=== PATIENT | male | born 1990 | race Caucasian/White ===

== ENCOUNTER 2016-10-23 23:02 | Emergency (ER) | payer OTHER ==
[~2016-10-23 23:02] MED LIST: ADV250INH INH; ALBU17IN INH; ALBU17IN2 INH; ALPR0.25 PO; DUONSOL NEB; FLOVENT INH; GUAISYP4 PO; INSU70DS SC; INSUH10VL INJ; INSUH10VL IV; INSUH10VL SC; INSULANT SC; KLOR20TA PO; LANTUS INSULIN SC; LISI2.5T PO; MAGN200T PO; MICR10CA PO; NAPR500T2 PO; NOVO70VL SC; NOVOLOG; NOVOLOG INSULIN SC; OMEP20CA3 PO; PRED20TA PO; PRIL20CA PO; SING10TA32 PO; SING5CHW PO; SINGULAIR PO; TYLE325T5 PO; XANA0.25 PO; ZITHTAB PO
[2016-10-23] MEDS ORDERED: AZITHROMYCIN 250 MG TAB As Ordered ONE (23:33)
--- NOTE | 2016-10-23 23:47 | EDDOCDS ---
Physician Documentation [facility] Name: Scott Hernandez Age: 26 yrs Sex: Male : 1990 Arrival Date: 10/23/2016 Time: 23:02 Bed 8 Private MD: Court Persaud K. Disposition: 10/23/16 23:25 Discharged to Home/Self Care. Impression: Acute pharyngitis, Acute frontal sinusitis. - Condition is Stable. - Discharge Instructions: Pharyngitis, Salt Water Gargle. - Prescriptions for Claritin- D 12 Hour 5-120 mg Oral Tablet Sustained Release 12 hr - take 1 tablet by ORAL route every 12 hours As needed; 30 tablet. Zithromax Z- Aba 250 mg Oral Tablet - take 1 tablet by ORAL route as directed for 5 days Day 1- take two tablets once. Day 2, 3, 4 , 5 take one tablet once daily.; 6 tablet. - Medication Reconciliation, Local Pharmacy Hours form. - Follow up: Court Persaud; When: 1 week; Reason: Recheck today's complaints, Continuance of care. - Problem is an ongoing problem. - Symptoms are unchanged. Historical: - Allergies: PENICILLINS (Hives); - Home Meds: 1. albuterol sulfate 90 mcg/actuation Inhl aepb 2 puffs every 4-6 hours for Acute Asthma Attack 2. Humalog 100 unit/mL Sub-Q soln four times a day Slding Scale for Type 1 Diabetes Mellitus 3. trujeio 4. nicotoine patch - PMHx: Asthma; Diabetes - IDDM: controlled; Scoliosis; - PSHx: none; - Social history: Smoking status: Patient states former smoker of tobacco. No barriers to communication noted, The patient speaks fluent South Sudanese, Speaks appropriately for age. - Family history: Not pertinent. - : The pt / caregiver states he / she is not on anticoagulants. Home medication list is obtained from the patient. - Exposure Risk Screening:: None identified. Vital Signs: 10/23 23:04 BP 142 / 83; Pulse 110; Resp 18 S; Temp 98.3(T); Pulse Ox 98% on R/A; Weight 67.59 kg / gr2 149.01 lbs (R); Height 5 ft. 8 in. (172.72 cm) (R); Pain 3/10; 23:04 Body Mass Index 22.66 (67.59 kg, 172.72 cm) gr2 MDM: 23:22 azithromycin 500 mg PO once ordered. kyle 23:42 Financial registration complete. pm4 Administered Medications: 23:36 Drug: azithromycin 500 mg [azithromycin 250 mg tablet (2 tabs)] Route: PO; ko2 Signatures: Rambo Paz RN RN cz Mo Jiménez, MIS SPECIALIST MIS SPECIALIST Latanya Bell RN RN ko2 Xavier Whitten, Reg Reg pm4 MTDD
--- NOTE | 2016-10-23 23:47 | EDDOCDS ---
Nurse's Notes [facility] Name: Scott Hernandez Age: 26 yrs Sex: Male : 1990 Arrival Date: 10/23/2016 Time: 23:02 Bed 8 Private MD: Court Persaud K. Diagnosis: Acute pharyngitis;Acute frontal sinusitis Presentation: 10/23 23:06 Presenting complaint: Patient states: for past couple days URI symptoms laryngitis. cz Adult Sepsis Screening: The patient does not have new or worsening altered mentation. Patient's respiratory rate is less than 22. Systolic blood pressure is greater than 100. Patient has a qSOFA score of 0- Negative Sepsis Screen. Suicide/Homicide risk assessment- the patient denies having any suicidal and/or homicidal ideations and does not present with any other emotional, behavioral or mental health complaints. Status: Patient is not a director of tax services or dependent. Transition of care: patient was not received from another setting of care. 23:06 Acuity: JOSE ANTONIO Level 5 cz 23:06 Method Of Arrival: Walkin/Carried/Asstd cz Triage Assessment: 23:09 General: Appears in no apparent distress. HIV screening NA for this visit Offered cz previously. Historical: - Allergies: PENICILLINS (Hives); - Home Meds: 1. albuterol sulfate 90 mcg/actuation Inhl aepb 2 puffs every 4-6 hours for Acute Asthma Attack 2. Humalog 100 unit/mL Sub-Q soln four times a day Slding Scale for Type 1 Diabetes Mellitus 3. trujeio 4. nicotoine patch - PMHx: Asthma; Diabetes - IDDM: controlled; Scoliosis; - PSHx: none; - Social history: Smoking status: Patient states former smoker of tobacco. No barriers to communication noted, The patient speaks fluent Greek, Speaks appropriately for age. - Family history: Not pertinent. - : The pt / caregiver states he / she is not on anticoagulants. Home medication list is obtained from the patient. - Exposure Risk Screening:: None identified. Screenin:39 Screening information is obtained from the patient. Fall risk: No risks identified. ko2 Assistance ADL's: requires no assistance with activities of daily living. Abuse/DV Screen: The patient / caregiver reports he/she is: not in a situation that causes fear, pain or injury. Nutritional screening: No deficits noted. Advance Directives: Currently, there is no health care proxy. There is no active DNR order. There is no living will. There is no Power of Master Mechanic. home support is adequate. Assessment: 23:15 General: Appears in no apparent distress, Behavior is appropriate for age, cooperative. ko2 Neurological: Level of Consciousness is awake, alert, Oriented to person, place, time. Respiratory: Airway is patent Respiratory effort is even, unlabored. Derm: Skin is normal. Vital Signs: 23:04 BP 142 / 83; Pulse 110; Resp 18 S; Temp 98.3(T); Pulse Ox 98% on R/A; Weight 67.59 kg gr2 (R); Height 5 ft. 8 in. (172.72 cm) (R); Pain 3/10; 23:04 Body Mass Index 22.66 (67.59 kg, 172.72 cm) gr2 Vitals: 23:04 Log In Time: October 23, 2016 at 23:04. gr2 ED Course: 23:03 Patient visited by Miguel Dumont. gr2 23:03 Patient moved to Waiting gr2 23:04 Court Persaud is Private Physician. gr2 23:05 Patient visited by Miguel Dumont. gr2 23:05 Patient moved to Pre RCE gr2 23:07 Triage Initiated cz 23:13 Mo Jiménez FNP is PHCP. ke 23:13 Latanya Corona,RN is Primary Nurse. ke 23:13 Patient visited by Mo Jiménez FNP. ke 23:13 Patient visited by Mo Jiménez FNP. ke 23:13 Patient moved to 8 ke 23:25 [address] Persaud is Referral Physician. ke 23:43 The patient / caregiver is instructed regarding the plan of care and ED course. ko2 23:44 No IV's were initiated during this patient's visit. No procedures done that require ko2 assistance. 23:46 Patient visited by Cynthia Ballard PCA. cln Administered Medications: 23:36 Drug: azithromycin 500 mg [azithromycin 250 mg tablet (2 tabs)] Route: PO; ko2 Order Results: There are currently no results for this order. Outcome: 23:25 Discharge ordered by Provider. ke 23:44 Discharge Assessment: Patient awake, alert and oriented x 3. No cognitive and/or ko2 functional deficits noted. Patient verbalized understanding of disposition instructions. patient administered narcotics - no. The following High Risk Discharge criteria are identified: None. Discharged to home ambulatory. Condition: stable. Discharge instructions given to patient, Instructed on discharge instructions, follow up and referral plans. medication usage, Demonstrated understanding of instructions, medications, Pt was receptive of discharge instructions/ teaching. Prescriptions given X 2. No special radiology studies were completed. Property sent home with patient. 23:45 Patient left the ED. ko2 Signatures: Rambo Paz, RN RN cz oM Jiménez, TALENT ENGINEER TALENT ENGINEER Miguel Huerta2 Latanya Corona RN RN ko2 Cyntiha Ballard, JARED ASSISTANT PORTFOLIO MANAGER cln MTDD
--- NOTE | 2016-10-26 00:47 | EDDOCDS ---
Physician Documentation [facility] Name: Scott Hernandez Age: 26 yrs Sex: Male : 1990 Arrival Date: 10/23/2016 Time: 23:02 Bed 8 Private MD: Court Persaud K. Disposition: 10/23/16 23:25 Discharged to Home/Self Care. Impression: Acute pharyngitis, Acute frontal sinusitis. - Condition is Stable. - Discharge Instructions: Pharyngitis, Salt Water Gargle. - Prescriptions for Claritin- D 12 Hour 5-120 mg Oral Tablet Sustained Release 12 hr - take 1 tablet by ORAL route every 12 hours As needed; 30 tablet. Zithromax Z- Aba 250 mg Oral Tablet - take 1 tablet by ORAL route as directed for 5 days Day 1- take two tablets once. Day 2, 3, 4 , 5 take one tablet once daily.; 6 tablet. - Medication Reconciliation, Local Pharmacy Hours form. - Follow up: Court Persaud; When: 1 week; Reason: Recheck today's complaints, Continuance of care. - Problem is an ongoing problem. - Symptoms are unchanged. Historical: - Allergies: PENICILLINS (Hives); - Home Meds: 1. albuterol sulfate 90 mcg/actuation Inhl aepb 2 puffs every 4-6 hours for Acute Asthma Attack 2. Humalog 100 unit/mL Sub-Q soln four times a day Slding Scale for Type 1 Diabetes Mellitus 3. trujeio 4. nicotoine patch - PMHx: Asthma; Diabetes - IDDM: controlled; Scoliosis; - PSHx: none; - Social history: Smoking status: Patient states former smoker of tobacco. No barriers to communication noted, The patient speaks fluent Panamanian, Speaks appropriately for age. - Family history: Not pertinent. - : The pt / caregiver states he / she is not on anticoagulants. Home medication list is obtained from the patient. - Exposure Risk Screening:: None identified. Vital Signs: 10/23 23:04 BP 142 / 83; Pulse 110; Resp 18 S; Temp 98.3(T); Pulse Ox 98% on R/A; Weight 67.59 kg / gr2 149.01 lbs (R); Height 5 ft. 8 in. (172.72 cm) (R); Pain 3/10; 23:04 Body Mass Index 22.66 (67.59 kg, 172.72 cm) gr2 MDM: 23:22 azithromycin 500 mg PO once ordered. kyle 23:42 Financial registration complete. pm4 10/24 00:21 [facility] Payment Agreement was scanned into [employer] and attached to record. pm4 11:48 T-Sheet-- Draft Copy was scanned into [employer] and attached to record. gb Administered Medications: 10/23 23:36 Drug: azithromycin 500 mg [azithromycin 250 mg tablet (2 tabs)] Route: PO; ko2 Signatures: Rambo Paz, RN RN cz Rocio Goodman, Reg Reg gb Mo Jiménez, PUMP RUNNER PUMP RUNNER Latanya Bell RN RN ko2 Xavier Whitten, Reg Reg pm4 The chart was reviewed and I authenticate all verbal orders and agree with the evaluation and treatment provided.Attachments: 10/24 00:21 [facility] Payment Agreement pm4 11:48 T-Sheet-- Draft Copy gb Chart Complete MTDD
--- NOTE | 2016-10-26 00:47 | EDDOCDS ---
Physician Documentation [facility] Name: Scott Hernandez Age: 26 yrs Sex: Male : 1990 Arrival Date: 10/23/2016 Time: 23:02 Bed 8 Private MD: Court Persaud K. Disposition: 10/23/16 23:25 Discharged to Home/Self Care. Impression: Acute pharyngitis, Acute frontal sinusitis. - Condition is Stable. - Discharge Instructions: Pharyngitis, Salt Water Gargle. - Prescriptions for Claritin- D 12 Hour 5-120 mg Oral Tablet Sustained Release 12 hr - take 1 tablet by ORAL route every 12 hours As needed; 30 tablet. Zithromax Z- Aba 250 mg Oral Tablet - take 1 tablet by ORAL route as directed for 5 days Day 1- take two tablets once. Day 2, 3, 4 , 5 take one tablet once daily.; 6 tablet. - Medication Reconciliation, Local Pharmacy Hours form. - Follow up: Court Persaud; When: 1 week; Reason: Recheck today's complaints, Continuance of care. - Problem is an ongoing problem. - Symptoms are unchanged. Historical: - Allergies: PENICILLINS (Hives); - Home Meds: 1. albuterol sulfate 90 mcg/actuation Inhl aepb 2 puffs every 4-6 hours for Acute Asthma Attack 2. Humalog 100 unit/mL Sub-Q soln four times a day Slding Scale for Type 1 Diabetes Mellitus 3. trujeio 4. nicotoine patch - PMHx: Asthma; Diabetes - IDDM: controlled; Scoliosis; - PSHx: none; - Social history: Smoking status: Patient states former smoker of tobacco. No barriers to communication noted, The patient speaks fluent Salvadorean, Speaks appropriately for age. - Family history: Not pertinent. - : The pt / caregiver states he / she is not on anticoagulants. Home medication list is obtained from the patient. - Exposure Risk Screening:: None identified. Vital Signs: 10/23 23:04 BP 142 / 83; Pulse 110; Resp 18 S; Temp 98.3(T); Pulse Ox 98% on R/A; Weight 67.59 kg / gr2 149.01 lbs (R); Height 5 ft. 8 in. (172.72 cm) (R); Pain 3/10; 23:04 Body Mass Index 22.66 (67.59 kg, 172.72 cm) gr2 MDM: 23:22 azithromycin 500 mg PO once ordered. kyle 23:42 Financial registration complete. pm4 10/24 00:21 [facility] Payment Agreement was scanned into [employer] and attached to record. pm4 11:48 T-Sheet-- Draft Copy was scanned into [employer] and attached to record. gb Administered Medications: 10/23 23:36 Drug: azithromycin 500 mg [azithromycin 250 mg tablet (2 tabs)] Route: PO; ko2 Signatures: Rambo Paz, RN RN cz Rocio Goodman, Reg Reg gb Mo Jiménez, PHYSICAL INSTRUCTOR PHYSICAL INSTRUCTOR Latanya Bell RN RN ko2 Xavier Whitten, Reg Reg pm4 The chart was reviewed and I authenticate all verbal orders and agree with the evaluation and treatment provided.Attachments: 10/24 00:21 [facility] Payment Agreement pm4 11:48 T-Sheet-- Draft Copy gb Chart Complete MTDD
--- NOTE | 2016-10-26 00:47 | EDDOCDS ---
Nurse's Notes [facility] Name: Scott Hernandez Age: 26 yrs Sex: Male : 1990 Arrival Date: 10/23/2016 Time: 23:02 Bed 8 Private MD: Court Persaud K. Diagnosis: Acute pharyngitis;Acute frontal sinusitis Presentation: 10/23 23:06 Presenting complaint: Patient states: for past couple days URI symptoms laryngitis. cz Adult Sepsis Screening: The patient does not have new or worsening altered mentation. Patient's respiratory rate is less than 22. Systolic blood pressure is greater than 100. Patient has a qSOFA score of 0- Negative Sepsis Screen. Suicide/Homicide risk assessment- the patient denies having any suicidal and/or homicidal ideations and does not present with any other emotional, behavioral or mental health complaints. Status: Patient is not a neuropsychology service director or dependent. Transition of care: patient was not received from another setting of care. 23:06 Acuity: JOSE ANTONIO Level 5 cz 23:06 Method Of Arrival: Walkin/Carried/Asstd cz Triage Assessment: 23:09 General: Appears in no apparent distress. HIV screening NA for this visit Offered cz previously. Historical: - Allergies: PENICILLINS (Hives); - Home Meds: 1. albuterol sulfate 90 mcg/actuation Inhl aepb 2 puffs every 4-6 hours for Acute Asthma Attack 2. Humalog 100 unit/mL Sub-Q soln four times a day Slding Scale for Type 1 Diabetes Mellitus 3. trujeio 4. nicotoine patch - PMHx: Asthma; Diabetes - IDDM: controlled; Scoliosis; - PSHx: none; - Social history: Smoking status: Patient states former smoker of tobacco. No barriers to communication noted, The patient speaks fluent Bulgarian, Speaks appropriately for age. - Family history: Not pertinent. - : The pt / caregiver states he / she is not on anticoagulants. Home medication list is obtained from the patient. - Exposure Risk Screening:: None identified. Screenin:39 Screening information is obtained from the patient. Fall risk: No risks identified. ko2 Assistance ADL's: requires no assistance with activities of daily living. Abuse/DV Screen: The patient / caregiver reports he/she is: not in a situation that causes fear, pain or injury. Nutritional screening: No deficits noted. Advance Directives: Currently, there is no health care proxy. There is no active DNR order. There is no living will. There is no Power of [place]. home support is adequate. Assessment: 23:15 General: Appears in no apparent distress, Behavior is appropriate for age, cooperative. ko2 Neurological: Level of Consciousness is awake, alert, Oriented to person, place, time. Respiratory: Airway is patent Respiratory effort is even, unlabored. Derm: Skin is normal. Vital Signs: 23:04 BP 142 / 83; Pulse 110; Resp 18 S; Temp 98.3(T); Pulse Ox 98% on R/A; Weight 67.59 kg gr2 (R); Height 5 ft. 8 in. (172.72 cm) (R); Pain 3/10; 23:04 Body Mass Index 22.66 (67.59 kg, 172.72 cm) gr2 Vitals: 23:04 Log In Time: October 23, 2016 at 23:04. gr2 ED Course: 23:03 Patient visited by Miguel Dumont. gr2 23:03 Patient moved to Waiting gr2 23:04 Court Persaud is Private Physician. gr2 23:05 Patient visited by Miguel Dumont. gr2 23:05 Patient moved to Pre RCE gr2 23:07 Triage Initiated cz 23:13 Mo Jiménez FNP is PHCP. ke 23:13 Latanya Corona,RN is Primary Nurse. ke 23:13 Patient visited by Mo Jiménez FNP. ke 23:13 Patient visited by Mo Jiménez FNP. ke 23:13 Patient moved to 8 ke 23:25 [address] Persaud is Referral Physician. ke 23:43 The patient / caregiver is instructed regarding the plan of care and ED course. ko2 23:44 No IV's were initiated during this patient's visit. No procedures done that require ko2 assistance. 23:46 Patient visited by Cynthia Ballard PCA. cln 10/24 00:21 [facility] Payment Agreement was scanned into [employer] and attached to record. pm4 11:48 T-Sheet-- Draft Copy was scanned into [employer] and attached to record. gb Administered Medications: 10/23 23:36 Drug: azithromycin 500 mg [azithromycin 250 mg tablet (2 tabs)] Route: PO; ko2 Order Results: There are currently no results for this order. Outcome: 23:25 Discharge ordered by Provider. kyle 23:44 Discharge Assessment: Patient awake, alert and oriented x 3. No cognitive and/or ko2 functional deficits noted. Patient verbalized understanding of disposition instructions. patient administered narcotics - no. The following High Risk Discharge criteria are identified: None. Discharged to home ambulatory. Condition: stable. Discharge instructions given to patient, Instructed on discharge instructions, follow up and referral plans. medication usage, Demonstrated understanding of instructions, medications, Pt was receptive of discharge instructions/ teaching. Prescriptions given X 2. No special radiology studies were completed. Property sent home with patient. 23:45 Patient left the ED. ko2 Signatures: Rambo Paz, RN RN Rocio Alberts, Reg Reg gb Mo Jiménez, HEAD PASTRY CHEF HEAD PASTRY CHEF Miguel Huerta gr2 Latanya Corona RN RN ko2 Cynthia Ballard, PERSONAL FINANCIAL COUNSELOR PERSONAL FINANCIAL COUNSELOR cln Xavier Whitten, Reg Reg pm4 Chart Complete MTDFahad
== END 2016-10-23 23:45 | disposition home or self-care (01) ==
LOC: M ED 23:02
DX: J02.9 Acute pharyngitis, unspecified (principal); J01.90 Acute sinusitis, unspecified; J45.909 Unspecified asthma, uncomplicated; E10.9 Type 1 diabetes mellitus without complications; M41.9 Scoliosis, unspecified; Z88.0 Allergy status to penicillin; Z79.4 Long term (current) use of insulin; Z87.891 Personal history of nicotine dependence

== ENCOUNTER 2017-01-28 13:22 | Emergency (ER) | payer OTHER ==
[2017-01-28] MEDS ORDERED: TOUJ1.2I SC (13:34)
--- NOTE | 2017-01-28 13:50 | REP ---
Head CT without contrast: History: Trauma. Comparison study: No comparison study. CT findings: Bone window settings demonstrate an intact bony calvarium. There is no evidence of skull fracture or incidental bony calvarial lesion. The visualized paranasal sinuses appear clear. No intraorbital abnormality is seen. On soft tissue window setting images; the lateral, third, and fourth ventricles are normal in size and position. Rollins-white differentiation pattern is normal above and below the tentorium. There are is no evidence of intracranial hemorrhage. No mass, edema, infarction, or midline shift is seen. No extra-axial fluid collection is appreciated. Impression: Negative noncontrast head CT. Signed by Ivan Quiñonez MD 01/28/2017 01:41 P
[2017-01-28] MEDS ORDERED: KETOROLAC 30 MG/ML VIAL (J1885) IV ONE (14:00)
[2017-01-28 14:40] VITALS: BP 129/82
[2017-03-03] MEDS ORDERED: INSULANT SC (13:20)
[2017-03-03] MEDS ORDERED: DICY20TA11 PO (13:20)
[2017-03-03] MEDS ORDERED: INSUHUMDS SC (13:20)
[2017-03-03] MEDS ORDERED: IBUP800T23 PO (13:20)
== END 2017-01-28 14:59 | disposition home or self-care (01) ==
LOC: EDBD 13:22 → M ED 13:46
DX: S09.8XXA Other specified injuries of head, initial encounter (principal); W22.8XXA Striking against or struck by other objects, initial encounter; Y92.59 Other trade areas as the place of occurrence of the external cause; Y93.89 Activity, other specified; Y99.0 Civilian activity done for income or pay; Z88.0 Allergy status to penicillin; Z79.4 Long term (current) use of insulin
CPT/HCPCS: 70450; 96374; 99282; J1885

== ENCOUNTER → 2017-02-18 | Outpatient (CLI) | payer OTHER ==
[~2017-02-18] MED LIST changes: +TOUJ1.2I SC
[2017-02-18 17:02] LABS: FREE T4 0.97 NG/DL (0.76-1.46)
== END ==
LOC: M LAB 15:34
PROVIDERS: ATTEND Internal Medicine Gastroenterology
DX: R19.7 Diarrhea, unspecified (principal)

== ENCOUNTER → 2017-03-03 | Outpatient (CLI) | payer OTHER ==
[~2017-03-03] MED LIST changes: +DICY20TA11 PO; +E-Z-PAQUE 96% w/w SUSP 176GM BTL As Ordered ONE; +IBUP800T23 PO; +INSUHUMDS SC
--- NOTE | 2017-03-03 17:14 | REP ---
Small bowel follow-through The procedure was performed under the direct supervision of Dr. Quiñonez. The images were reviewed with Dr. Quiñonez. The disintegrator operator film shows no organomegaly or pathological masses. The intestinal gas pattern is nonspecific. Liquid barium was administered and the barium column was followed through the small bowel to the level of the terminal ileum. Small bowel transit time is approximately 80 minutes . During fluoroscopy gentle palpation shows all loops are freely movable and pliable. There are no fixed or angulated loops. The small bowel mucosal pattern is normal in course and caliber. There is no transition to suggest a partial small bowel obstruction. Spot filming of the terminal ileum shows it to be unremarkable. Impression: Small bowel follow-through examination within normal limits. 1 minute and 15 seconds of fluoro time was utilized for this procedure. Reviewed by REGGIE Luna 03/03/2017 04:04 PSigned by Ivan Quiñonez MD 03/03/2017 05:05 P
== END ==
LOC: M RAD 08:05
PROVIDERS: ATTEND Internal Medicine Gastroenterology
DX: K58.0 Irritable bowel syndrome with diarrhea (principal)

== ENCOUNTER → 2017-03-10 | Outpatient (CLI) | payer OTHER ==
[~2017-03-10] VITALS: Ht 170.2 cm; Wt 64.9 kg
[~2017-03-10] MED LIST changes: -E-Z-PAQUE 96% w/w SUSP 176GM BTL As Ordered ONE; +LIDOCAINE 2% INJ 100 MG/5 ML SDV (FOR ANES.) As Ordered ONE; +NS 1,000 ML IV ONE; +PROPOFOL 200 MG/20 ML VIAL As Ordered ONE
--- NOTE | 2017-03-10 13:30 | ROOR ---
Patient Name: Scott Hernandez Procedure Date: 03/10/2017 1:02 PM Date of : 1990 Age: 26 Room: [facility] Gender: Male Note Status: Finalized Procedure: Colonoscopy Indications: Irritable bowel syndrome with diarrhea Providers: Markus POZO MD Referring MD: Darrin PEARCE MD Requesting Provider: Medicines: Monitored Anesthesia Care Complications: No immediate complications. Procedure: Pre-Anesthesia Assessment: - The heart rate, respiratory rate, oxygen saturations, blood pressure, adequacy of pulmonary ventilation, and response to care were monitored throughout the procedure. The Colonoscope was introduced through the anus and advanced to 5 cm into the ileum. The colonoscopy was performed without difficulty. The patient tolerated the procedure well. The quality of the bowel preparation was good. Findings: The perianal and digital rectal examinations were normal. (Exam: Complete, Prep: Good or Excellent.) The terminal ileum appeared normal. The entire examined colon appeared normal on direct and retroflexion views. Impression: - The examined portion of the ileum was normal. - The entire examined colon is normal on direct and retroflexion views. - No specimens collected. - (Irritable Bowel Syndrome/IBS suspected.) Recommendation: - Continue present medications. - Use fiber, for example Citrucel, Fibercon, Konsyl or Metamucil. Markus Pozo MD Markus POZO MD 03/10/2017 1:30:16 PM This report has been signed electronically. Number of Addenda: 0 Note Initiated On: 03/10/2017 1:02 PM Estimated Blood Loss: Estimated blood loss: none.
[2017-03-10 13:55] VITALS: BP 139/86
== END | disposition home or self-care (01) ==
LOC: M OPP 12:08
PROVIDERS: ATTEND Internal Medicine Gastroenterology
DX: K58.0 Irritable bowel syndrome with diarrhea (principal); E10.9 Type 1 diabetes mellitus without complications; R51 Headache; J45.909 Unspecified asthma, uncomplicated; F17.210 Nicotine dependence, cigarettes, uncomplicated; Z88.0 Allergy status to penicillin; Z79.899 Other long term (current) drug therapy; Z80.1 Family history of malignant neoplasm of trachea, bronchus and lung; Z80.42 Family history of malignant neoplasm of prostate

== ENCOUNTER 2017-03-27 13:11 | Emergency (ER) | payer OTHER ==
[~2017-03-27] VITALS: Ht 172.7 cm; Wt 66.3 kg
[~2017-03-27 13:11] MED LIST changes: -LIDOCAINE 2% INJ 100 MG/5 ML SDV (FOR ANES.) As Ordered ONE; -NS 1,000 ML IV ONE; -PROPOFOL 200 MG/20 ML VIAL As Ordered ONE
[2017-03-27] MEDS ORDERED: FLUORESCEIN OPHTH 1 MG STRIP OD ONE (14:00)
[2017-03-27 14:37] VITALS: BP 104/65
[2017-03-27] MEDS ORDERED: prednisoLONE ACET 1% OPHTH SUSP 5ML OD SCH (16:00)
== END 2017-03-27 14:38 | disposition home or self-care (01) ==
LOC: M ED 13:53
DX: H20.9 Unspecified iridocyclitis (principal); E11.9 Type 2 diabetes mellitus without complications; F17.200 Nicotine dependence, unspecified, uncomplicated

== ENCOUNTER → 2017-07-23 | Outpatient (REF) | payer OTHER ==
[~2017-07-23] MED LIST changes: +IBUP1TAB7 PO; -IBUP800T23 PO; -NAPR500T2 PO; +NAPR500T3 PO
[2017-07-23 12:55] LABS: ANION GAP 4 MEQ/L (8-16); BLOOD UREA NITROGEN 15 MG/DL (7-18); CALCIUM LEVEL 8.9 MG/DL (8.5-10.1); CARBON DIOXIDE LEVEL 34 MEQ/L (21-32); CHLORIDE LEVEL 100 MEQ/L (98-107); CHOLESTEROL LEVEL 145 MG/DL (<200); CREATININE FOR GFR 0.71 MG/DL (0.70-1.30); GLOMERULAR FILTRATION RATE > 60.0 (>60); GLUCOSE, FASTING 186 MG/DL (70-105); POTASSIUM SERUM 4.2 MEQ/L (3.5-5.1); SODIUM LEVEL 138 MEQ/L (136-145); TRIGLYCERIDES LEVEL 67 MG/DL (<150)
== END ==
LOC: M LABDRAW1 10:41
PROVIDERS: ATTEND Nurse Practitioner Family
DX: E10.65 Type 1 diabetes mellitus with hyperglycemia (principal)

== ENCOUNTER → 2018-09-17 | Outpatient (REF) | payer OTHER ==
[2018-09-17 19:48] LABS: MALB URINE SIEMENS 28.7 MG/L; MAU/CREAT RATIO 50.3 MCG/MG (0.0-30.0)
== END ==
LOC: M LAB REF 10:37
DX: E10.9 Type 1 diabetes mellitus without complications (principal)
CPT/HCPCS: 82043

== ENCOUNTER 2018-12-09 14:48 | Inpatient (IN) | payer OTHER ==
[~2018-12-09] VITALS: Ht 172.7 cm; Wt 72.3 kg
[~2018-12-09 14:48] MED LIST changes: +NAPR-885 PO; -NAPR500T3 PO
[2018-12-09] MEDS ORDERED: TOUJ1.2I SC (15:10)
[2018-12-09] MEDS ORDERED: NS 1,000 ML IV ONE (15:45)
[2018-12-09 15:46] LABS: BASO % 0.3 % (0.0-1.0); EOS # 0.5 10^3/uL (0.0-0.50); EOS % 4.4 % (0.0-3.0); HEMATOCRIT 47.7 % (42.0-52.0); HEMOGLOBIN 16.2 g/dl (13.5-17.5); LYMPH # 1.7 10^3/uL (1.5-6.5); LYMPH % 13.9 % (24.0-44.0); MEAN CORPUSCULAR HEMOGLOBIN 29.4 pg (27.0-33.0); MEAN CORPUSCULAR VOLUME 86.6 fl (80.0-96.0); MONO # 1.1 10^3/uL (0.0-0.8); MONO % 9.3 % (0.0-5.0); NEUTROPHILS # 8.6 10^3/uL (1.8-7.7); NEUTROPHILS % 71.5 % (36.0-66.0); PLATELET COUNT, AUTOMATED 259 10^3/uL (150-450); RED BLOOD COUNT 5.51 10^6/uL (4.30-6.10)
[2018-12-09 15:49] LABS: VENOUS BASE EXCESS -13.9 (-2.0-2.0); VENOUS HCO3 12.5 MEQ/L (23.0-27.0); VENOUS O2 SATURATION 87.2 % (60.0-80.0); VENOUS PARTIAL PRESSURE CO2 31.7 mmHg (38.0-50.0); VENOUS PARTIAL PRESSURE O2 56.2 mmHg (30.0-50.0); VENOUS PH 7.215 UNITS (7.330-7.430); VENOUS TOTAL CO2 13.5 MEQ/L (24.0-28.0)
[2018-12-09 16:12] LABS: ALBUMIN 4.1 GM/DL (3.2-5.2); ALT/SGPT 27 U/L (12-78); BILIRUBIN,DIRECT 0.3 MG/DL (0.0-0.2); BILIRUBIN,TOTAL 1.1 MG/DL (0.2-1.0); BLOOD UREA NITROGEN 25 MG/DL (7-18); CALCIUM LEVEL 8.9 MG/DL (8.5-10.1); CARBON DIOXIDE LEVEL 15 MEQ/L (21-32); CHLORIDE LEVEL 96 MEQ/L (98-107); CREATININE FOR GFR 1.15 MG/DL (0.70-1.30); ETHYL ALCOHOL (ETHANOL) < 0.003 % (0.000-0.010); GLOMERULAR FILTRATION RATE > 60.0 (>60); GLUCOSE, FASTING 444 MG/DL (70-100); LIPASE 186 U/L (73-393); POTASSIUM SERUM 4.6 MEQ/L (3.5-5.1); SODIUM LEVEL 133 MEQ/L (136-145); TOTAL PROTEIN 6.9 GM/DL (6.4-8.2)
[2018-12-09 16:14] LABS: HEMOGLOBIN A1c 11.6 %
[2018-12-09] MEDS ORDERED: INSULIN HUMAN REGULAR 100 UNITS in NS 99 ML IV SCH ×3 (16:20→19:49)
[2018-12-09] MEDS ORDERED: INSULIN IV RATE CHANGE DOCUMENTATION ML/HR XX SCH (16:30)
[2018-12-09] MEDS ORDERED: NICO4GUM31 PO (16:54)
[2018-12-09] MEDS ORDERED: VENTAER INH (16:54)
[2018-12-09] MEDS ORDERED: ADME100I SC (16:54)
[2018-12-09] MEDS ORDERED: ONDANSETRON 4MG/2ML VIAL (J2405) IV ONE (17:00)
[2018-12-09 17:54] LABS: VENOUS BASE EXCESS -14.8 (-2.0-2.0); VENOUS HCO3 11.9 MEQ/L (23.0-27.0); VENOUS O2 SATURATION 93.9 % (60.0-80.0); VENOUS PARTIAL PRESSURE CO2 31.3 mmHg (38.0-50.0); VENOUS PARTIAL PRESSURE O2 77.2 mmHg (30.0-50.0); VENOUS PH 7.198 UNITS (7.330-7.430); VENOUS STANDARD HCO3 13.5 MEQ/L; VENOUS TOTAL CO2 12.9 MEQ/L (24.0-28.0)
[2018-12-09 18:06] LABS: AMPHETAMINES LEVEL URINE NEGATIVE (NEGATIVE); BARBITURATES URINE NEGATIVE (NEGATIVE); BENZODIAZEPINES URINE NEGATIVE (NEGATIVE); CANNABINOIDS URINE NEGATIVE (NEGATIVE); COCAINE METABOLITE URINE NEGATIVE (NEGATIVE); METHADONE URINE NEGATIVE (NEGATIVE); OPIATES URINE NEGATIVE (NEGATIVE); PHENCYCLIDINE URINE NEGATIVE (NEGATIVE)
[2018-12-09] MEDS ORDERED: NS 1,000 ML IV SCH (18:22)
[2018-12-09] MEDS ORDERED: ALBUTEROL 90 MCG/ACT 8GM HFA INHALER INH PRN (18:30)
--- NOTE | 2018-12-09 18:51 | HPE ---
DATE OF ADMISSION: 12/09/2018 This is a 28-year-old male with past medical history of type 1 diabetes, asthma, anxiety disorder who presents to the emergency room with nausea and vomiting that has been going on since this morning. Patient came in and had blood sugar over 400. Labs came back as anion gap acidosis, so he had acute diabetic ketoacidosis (DKA) and was started on insulin drip. Patient was explained that he does not have a Glucometer so he has been judging how much insulin he gives himself by how he feels and has a history of noncompliance. His A1c is 11. He will be admitted for further management. At this time he has mild nausea, but no abdominal pain. No chest pain or shortness of breath. PAST MEDICAL HISTORY: Type 1 diabetes. Asthma. Anxiety disorder. Gastroesophageal reflux disease (GERD). Scoliosis. Back pain. PAST SURGICAL HISTORY: None. ALLERGIES: PENICILLIN. FAMILY HISTORY: Noncontributory. SOCIAL HISTORY: Patient smokes less than 1/2 pack a day for years and denies alcohol or illicit drugs. MEDICATIONS HE TAKES AT HOME: Are as follow: - albuterol 2 puffs inhaled four times a day as needed - dicyclomine 20 mg orally every 6 hours as needed - ibuprofen 800 mg orally two times a day - Toujeo SoloStar 40 units subcutaneous twice a day REVIEW OF SYSTEMS: Negative all 10 major systems except what is mentioned in HPI. PHYSICAL EXAMINATION: VITAL SIGNS: Blood pressure 114/63, heart rate is 112, regular. Respiratory rate is 17. Temperature 97.6. Oxygen saturation is 97% on room air. Head: Atraumatic. Normocephalic. Neck: Supple. No jugular venous distention (JVD). Lungs: Clear to auscultation. S1, S2 audible. No murmurs appreciated. Abdomen: Soft, positive bowel sounds. No pedal edema. Skin: Intact. Neurological examination: Patient awake, alert and oriented times three. LABS: Sodium 133, potassium 4.6, chloride 96, CO2 15, BUN 25, creatinine 1.1.5. Glucose 444. Lipase 186, albumin 4.1. A1c is 11.6. Urine toxicology screen is negative. Urinalysis is negative for urinary tract infection (UTI). Blood gas shows his VBG pH of 7.215. IMPRESSION: DKA. PLAN: Patient is to be admitted to ICU. Will start the patient on insulin drip until his anion gap closes and will attempt to get him a Glucometer so he will be able to better control his fingersticks with his current insulin regimen. Will continue following his care in the ICU.
[2018-12-09 19:18] LABS: BLOOD UREA NITROGEN 24 MG/DL (7-18); CALCIUM LEVEL 8.4 MG/DL (8.5-10.1); CARBON DIOXIDE LEVEL 16 MEQ/L (21-32); CHLORIDE LEVEL 104 MEQ/L (98-107); CREATININE FOR GFR 1.13 MG/DL (0.70-1.30); GLOMERULAR FILTRATION RATE > 60.0 (>60); GLUCOSE, FASTING 316 MG/DL (70-100); POTASSIUM SERUM 3.8 MEQ/L (3.5-5.1); SODIUM LEVEL 137 MEQ/L (136-145)
[2018-12-09 20:00] VITALS: BP 104/56
[2018-12-09] MEDS: INSULIN HUMAN REGULAR 100 UNITS in NS 99 ML IV SCH (20:00)
[2018-12-09] MEDS ORDERED: ACETAMINOPHEN TAB 650MG DOSE (2X325MG) PO PRN (20:15)
[2018-12-09 20:38] LABS: BLOOD UREA NITROGEN 25 MG/DL (7-18); CALCIUM LEVEL 8.4 MG/DL (8.5-10.1); CARBON DIOXIDE LEVEL 21 MEQ/L (21-32); CHLORIDE LEVEL 103 MEQ/L (98-107); CREATININE FOR GFR 1.22 MG/DL (0.70-1.30); GLOMERULAR FILTRATION RATE > 60.0 (>60); GLUCOSE, FASTING 221 MG/DL (70-100); POTASSIUM SERUM 3.9 MEQ/L (3.5-5.1); SODIUM LEVEL 138 MEQ/L (136-145)
[2018-12-09] MEDS ORDERED: NICOTINE POLACRILEX 2 MG GUM PO PRN (20:45)
[2018-12-09] MEDS: D5W 1,000 ML IV SCH (21:00)
[2018-12-09] MEDS: INSULIN IV RATE CHANGE DOCUMENTATION ML/HR XX SCH (21:17)
[2018-12-09 22:57] LABS: BLOOD UREA NITROGEN 21 MG/DL (7-18); CALCIUM LEVEL 8.2 MG/DL (8.5-10.1); CARBON DIOXIDE LEVEL 19 MEQ/L (21-32); CHLORIDE LEVEL 107 MEQ/L (98-107); CREATININE FOR GFR 0.99 MG/DL (0.70-1.30); GLOMERULAR FILTRATION RATE > 60.0 (>60); GLUCOSE, FASTING 153 MG/DL (70-100); MAGNESIUM LEVEL 1.9 MG/DL (1.8-2.4); POTASSIUM SERUM 3.9 MEQ/L (3.5-5.1); SODIUM LEVEL 140 MEQ/L (136-145)
[2018-12-09] MEDS ORDERED: ONDANSETRON 4MG/2ML VIAL (J2405) IV PRN (23:30)
[2018-12-10] VITALS: BP 95/49
[2018-12-10 00:59] LABS: BLOOD UREA NITROGEN 19 MG/DL (7-18); CARBON DIOXIDE LEVEL 22 MEQ/L (21-32); CHLORIDE LEVEL 105 MEQ/L (98-107); CREATININE FOR GFR 0.94 MG/DL (0.70-1.30); GLOMERULAR FILTRATION RATE > 60.0 (>60); GLUCOSE, FASTING 177 MG/DL (70-100); POTASSIUM SERUM 3.8 MEQ/L (3.5-5.1); SODIUM LEVEL 138 MEQ/L (136-145)
[2018-12-10] MEDS ORDERED: GLUCAGON FOR INJ 1 MG VIAL (J1610) SC PRN (01:45)
[2018-12-10] MEDS ORDERED: DEXTROSE 50% 50 ML SYRINGE IV PRN (01:45)
[2018-12-10] MEDS ORDERED: GLUCOSE 4 GM CHEW TABLET PO PRN (01:45)
[2018-12-10 02:20] LABS: ABG BASE EXCESS -7.1 (-2.0-2.0); ABG HCO3 16.4 MEQ/L (22.0-26.0); ABG O2 SATURATION 98.7 % (95.0-99.0); ABG PARTIAL PRESSURE CO2 28.2 mmHg (35.0-45.0); ABG PARTIAL PRESSURE O2 130.7 mmHg (75.0-100.0); ABG STANDARD HCO3 18.8 MEQ/L (22.0-26.0); ABG TOTAL CO2 17.2 MEQ/L (22.0-29.0); ABG pH (ARTERIAL) 7.382 UNITS (7.350-7.450)
[2018-12-10 02:31] LABS: BLOOD UREA NITROGEN 19 MG/DL (7-18); CARBON DIOXIDE LEVEL 18 MEQ/L (21-32); CHLORIDE LEVEL 105 MEQ/L (98-107); CREATININE FOR GFR 1.05 MG/DL (0.70-1.30); GLOMERULAR FILTRATION RATE > 60.0 (>60); GLUCOSE, FASTING 215 MG/DL (70-100); POTASSIUM SERUM 3.7 MEQ/L (3.5-5.1); SODIUM LEVEL 136 MEQ/L (136-145)
[2018-12-10] MEDS: INSULIN IV RATE CHANGE DOCUMENTATION ML/HR XX SCH ×2 (02:38→05:05)
[2018-12-10 04:00] VITALS: BP 108/56
[2018-12-10 04:23] LABS: BASO % 0.2 % (0.0-1.0); EOS # 0.4 10^3/uL (0.0-0.50); EOS % 2.8 % (0.0-3.0); HEMATOCRIT 41.1 % (42.0-52.0); HEMOGLOBIN 14.3 g/dl (13.5-17.5); LYMPH # 2.3 10^3/uL (1.5-6.5); LYMPH % 16.9 % (24.0-44.0); MEAN CORPUSCULAR HEMOGLOBIN 29.7 pg (27.0-33.0); MEAN CORPUSCULAR HGB CONC 34.8 g/dl (32.0-36.5); MEAN CORPUSCULAR VOLUME 85.4 fl (80.0-96.0); MONO # 1.4 10^3/uL (0.0-0.8); MONO % 10.2 % (0.0-5.0); NEUTROPHILS # 9.6 10^3/uL (1.8-7.7); NEUTROPHILS % 69.4 % (36.0-66.0); PLATELET COUNT, AUTOMATED 209 10^3/uL (150-450); RED BLOOD COUNT 4.81 10^6/uL (4.30-6.10); WHITE BLOOD COUNT 13.8 10^3/uL (4.0-10.0)
[2018-12-10 04:35] LABS: BLOOD UREA NITROGEN 17 MG/DL (7-18); CALCIUM LEVEL 7.7 MG/DL (8.5-10.1); CARBON DIOXIDE LEVEL 23 MEQ/L (21-32); CHLORIDE LEVEL 104 MEQ/L (98-107); CREATININE FOR GFR 1.01 MG/DL (0.70-1.30); GLOMERULAR FILTRATION RATE > 60.0 (>60); GLUCOSE, FASTING 194 MG/DL (70-100); POTASSIUM SERUM 3.4 MEQ/L (3.5-5.1); SODIUM LEVEL 137 MEQ/L (136-145)
[2018-12-10] MEDS: D5W 1,000 ML IV SCH (04:38)
[2018-12-10] MEDS: INSULIN HUMAN REGULAR 100 UNITS in NS 99 ML IV SCH (05:00)
[2018-12-10] MEDS ORDERED: POTASSIUM CHLORIDE 10 MEQ SR TABLET PO ONE (05:15)
[2018-12-10 05:21] LABS: MAGNESIUM LEVEL 1.9 MG/DL (1.8-2.4)
[2018-12-10] MEDS ORDERED: LEVEMIR (INSULIN DETEMIR) 1 UNITS/0.01ML SC SCH ×3 (06:00→21:00)
[2018-12-10 06:47] LABS: BLOOD UREA NITROGEN 15 MG/DL (7-18); CARBON DIOXIDE LEVEL 21 MEQ/L (21-32); CHLORIDE LEVEL 104 MEQ/L (98-107); CREATININE FOR GFR 0.92 MG/DL (0.70-1.30); GLOMERULAR FILTRATION RATE > 60.0 (>60); GLUCOSE, FASTING 201 MG/DL (70-100); POTASSIUM SERUM 3.4 MEQ/L (3.5-5.1); SODIUM LEVEL 138 MEQ/L (136-145)
[2018-12-10 07:17] VITALS: BP 113/58
[2018-12-10] MEDS ORDERED: HumaLOG INSULIN (NovoLOG) PER UNIT SC SCH ×3 (07:30→21:00)
[2018-12-10] MEDS: KCL 20MEQ in NS 1000ML 1,000 ML IV SCH ×3 (08:15→20:09)
[2018-12-10] MEDS: HEPARIN SOD (PORCINE) 5000 UNITS/ML VIAL SQ SCH ×2 (08:15→21:00)
[2018-12-10 10:37] LABS: HEPATITIS C VIRUS ABY INDEX < 0.0 INDEX (<0.8); HIV 1&2 SCREEN CENTAUR NEGATIVE (NEGATIVE)
[2018-12-10 12:03] LABS: BLOOD UREA NITROGEN 14 MG/DL (7-18); CALCIUM LEVEL 7.9 MG/DL (8.5-10.1); CARBON DIOXIDE LEVEL 24 MEQ/L (21-32); CHLORIDE LEVEL 101 MEQ/L (98-107); CREATININE FOR GFR 1.04 MG/DL (0.70-1.30); GLOMERULAR FILTRATION RATE > 60.0 (>60); GLUCOSE, FASTING 280 MG/DL (70-100); MAGNESIUM LEVEL 1.8 MG/DL (1.8-2.4); POTASSIUM SERUM 4.1 MEQ/L (3.5-5.1); SODIUM LEVEL 135 MEQ/L (136-145)
[2018-12-10 12:14] VITALS: BP 122/73
[2018-12-10 14:35] VITALS: BP 137/77
[2018-12-10 15:39] LABS: BLOOD UREA NITROGEN 16 MG/DL (7-18); CALCIUM LEVEL 7.4 MG/DL (8.5-10.1); CARBON DIOXIDE LEVEL 26 MEQ/L (21-32); CHLORIDE LEVEL 106 MEQ/L (98-107); CREATININE FOR GFR 1.05 MG/DL (0.70-1.30); GLOMERULAR FILTRATION RATE > 60.0 (>60); GLUCOSE, FASTING 246 MG/DL (70-100); MAGNESIUM LEVEL 1.7 MG/DL (1.8-2.4); POTASSIUM SERUM 3.9 MEQ/L (3.5-5.1); SODIUM LEVEL 138 MEQ/L (136-145)
[2018-12-10] MEDS: HumaLOG INSULIN (NovoLOG) PER UNIT SC SCH (17:13)
[2018-12-10] MEDS ORDERED: MAG SULF 1GM/100ML (MAG RUN) 1 GM in APPROPRIATE DILUENT 1 EA IV ONE (18:15)
--- NOTE | 2018-12-10 18:19 | IPN ---
DATE: 12/10/2018 Patient seen and examined. Currently tolerating oral. Denies any chest pain, pressure, or discomfort. Denies any nausea, vomiting, abdominal pain. VITAL SIGNS: Temperature 98.9, pulse 112, respirations 16, blood pressure 137/77, pulse oximetry 99% on room air. LABORATORY DATA: WBC 13.8, hemoglobin and hematocrit 14.3/41.4, platelets 209. Chemistry: Sodium 138, potassium 3.9, chloride 106, bicarbonate 26, BUN 16, creatinine 1.05. PHYSICAL EXAMINATION: GENERAL: Patient alert, comfortable in no acute distress. HEENT: Normocephalic, atraumatic. PULMONARY: Bilaterally clear. CARDIAC: Regular, S1, S2. ABDOMEN: Soft, nontender. Positive bowel sounds. EXTREMITIES: No clubbing, cyanosis, or edema. NEUROLOGIC: No focal deficit. ASSESSMENT AND PLAN: This is a 28-year-old male patient with underlying medical history of type 1 diabetes, asthma, anxiety disorder who presented with nausea and vomiting. Found to be in diabetic ketoacidosis (DKA). As per patient, he lost his Glucometer and subsequently has been estimating his insulin regimen. Later, patient found his Glucometer. 1. DKA secondary to poor compliance. Currently bridged off of insulin drip. Continue intravenous (IV) fluids. Followup electrolytes. Basal bolus insulin as ordered. Need outpatient followup. Counseling provided. Glucometer was found. 2. Asthma. Patient currently does not have any wheeze. Outpatient followup. 3. Smoking. Nicotine gum. Counseling provided. 4. Deep vein thrombosis (DVT) prophylaxis. Heparin subcutaneous. DISPOSITION: Pending clinical improvement. Likely discharge in the next 24 hours.
[2018-12-10 22:00] VITALS: BP 131/70
[2018-12-11 04:20] LABS: HEMATOCRIT 42.6 % (42.0-52.0); HEMOGLOBIN 14.6 g/dl (13.5-17.5); MEAN CORPUSCULAR HEMOGLOBIN 29.5 pg (27.0-33.0); MEAN CORPUSCULAR HGB CONC 34.3 g/dl (32.0-36.5); MEAN CORPUSCULAR VOLUME 86.1 fl (80.0-96.0); PLATELET COUNT, AUTOMATED 212 10^3/uL (150-450); RED BLOOD COUNT 4.95 10^6/uL (4.30-6.10); WHITE BLOOD COUNT 10.6 10^3/uL (4.0-10.0)
[2018-12-11 04:43] LABS: ALBUMIN 3.1 GM/DL (3.2-5.2); ALT/SGPT 20 U/L (12-78); BILIRUBIN,TOTAL 0.3 MG/DL (0.2-1.0); BLOOD UREA NITROGEN 13 MG/DL (7-18); CALCIUM LEVEL 7.8 MG/DL (8.5-10.1); CARBON DIOXIDE LEVEL 28 MEQ/L (21-32); CHLORIDE LEVEL 112 MEQ/L (98-107); CREATININE FOR GFR 0.74 MG/DL (0.70-1.30); GLOMERULAR FILTRATION RATE > 60.0 (>60); GLUCOSE, FASTING 72 MG/DL (70-100); POTASSIUM SERUM 3.1 MEQ/L (3.5-5.1); SODIUM LEVEL 146 MEQ/L (136-145); TOTAL PROTEIN 5.5 GM/DL (6.4-8.2)
[2018-12-11 06:00] VITALS: BP 108/56
[2018-12-11] MEDS ORDERED: POTASSIUM CHLORIDE 10 MEQ SR TABLET PO ONE ×3 (06:15→08:30)
[2018-12-11] MEDS ORDERED: GLUC1TES2 XX (08:34)
[2018-12-11] MEDS ORDERED: TOUJ1.2I SC (08:34)
[2018-12-11] MEDS ORDERED: PEN1MIS21 SC (08:34)
[2018-12-11] MEDS ORDERED: LANC30MI XX (08:34)
[2018-12-11] MEDS ORDERED: K-TA1TAB PO (08:37)
[2018-12-11] MEDS: HEPARIN SOD (PORCINE) 5000 UNITS/ML VIAL SQ SCH (09:00)
[2018-12-11] MEDS ORDERED: LEVEMIR (INSULIN DETEMIR) 1 UNITS/0.01ML SC SCH (09:00)
[2018-12-11] MEDS: HumaLOG INSULIN (NovoLOG) PER UNIT SC SCH ×2 (09:07→12:35)
--- NOTE | 2018-12-11 09:40 | ECGEPIP ---
Stationary ECG Study [facility] - ED Test Date: 2018-12-09 Pat Name: FRANCES KNIGHT Department: Room: - Gender: M [employer] Supervisor: JANUARY : 1990 Requested By: Juaquin Mullen Order Number: [id number] Reading MD: Nisha Green Measurements Intervals [place] Rate: 112 P: 72 WY: 141 QRS: 85 QRSD: 93 T: 50 QT: 325 QTc: 446 Interpretive Statements SINUS TACHYCARDIA INCOMPLETE RIGHT BUNDLE BRANCH BLOCK ABNORMAL RHYTHM ECG RIGHTWARD AXIS CW 04/03/14 RATE INCREASED NEW RIGHTWARD AXIS Electronically Signed On 12-11-2018 9:39:34 EST by Nisha Green
--- NOTE | 2018-12-11 16:19 | DSES ---
DATE OF ADMISSION: 12/09/2018 DATE OF DISCHARGE: 12/11/2018 PRIMARY CARE PROVIDER: Dr. Darrin Ludwig FINAL DIAGNOSES: 1. Diabetic ketoacidosis, poor compliance. 2. History of asthma. 3. History of smoking. 4. Diabetes mellitus, type 1. 5. History of anxiety disorder. HISTORY OF PRESENT ILLNESS: This is a 28-year-old male patient with underlying medical history of type 1 diabetes, asthma, anxiety disorder who presented to the emergency room with nausea and vomiting. Has been ongoing for 1 day. Came to the hospital and had blood sugar greater than 400. Labs came back showing anion gap acidosis. Subsequently patient was admitted for diabetic ketoacidosis (DKA), started on insulin drip. Patient stated that he has recently lost his Glucometer. Has been judging his insulin dosage that he gives himself based on how he feels. Patient is poorly compliant with A1c of 11. HOSPITAL COURSE: Patient initially admitted to intensive care unit (ICU). Started on aggressive intravenous (IV) fluids, supplemented electrolytes, started on insulin drip. Fingersticks were followed every 1 hour as well as serial basic metabolic panel. Anion gap was followed. Electrolytes were followed and supplemented. Patient's anion gap closed, and subsequently patient was bridged to basal bolus insulin with insulin dose adjusted based on fingersticks. Diet was advanced to consistent-carbohydrate. IV fluid was provided but later decreased. Patient currently is tolerating oral. Counseling was provided. Ready to be discharged for further care as outpatient. VITAL SIGNS: Temperature 98.2, pulse 80, respirations 16, blood pressure 108/56, pulse oximetry 99% on room air. LABORATORY DATA: WBC 10.6, hemoglobin and hematocrit 14.6/42.6, platelets 212. Chemistry: Sodium 146, potassium 3.1, chloride 112, bicarbonate 26, BUN 13, creatinine 0.74. PHYSICAL EXAMINATION: GENERAL: Patient alert, comfortable in no acute distress . HEENT: Normocephalic, atraumatic. PULMONARY: Bilaterally clear. CARDIAC: Regular, S1, S2. ABDOMEN: Soft, nontender. Positive bowel sounds. EXTREMITIES: No clubbing, cyanosis, or edema. DISCHARGE MEDICATIONS: - Glucometer strip as directed - potassium chloride 20 mEq by mouth daily for 7 days - Admelog before meals subcutaneous as directed - Ventolin inhaler four times a day as needed - dicyclomine 20 mg by mouth every 6 hours as needed - ibuprofen 800 mg by mouth three times a day as needed - nicotine gum 4 mg every 2 hours as needed by mouth - Toujeo 40 units subcutaneous twice a day DISCHARGE INSTRUCTIONS: Please see primary care provider in 5 days. Consider referral for [facility] as per primary. Need improved glycemic control. Please return if symptoms worsen.
== END 2018-12-11 12:16 | disposition home or self-care (01) | DRG 420 ==
LOC: M ED 14:48 → M ED INP 18:22 → M ICU 19:43 → M MS4PR 12-10 14:35
PROVIDERS: ADMIT Internal Medicine; ATTEND Hospitalist
DX: E10.10 Type 1 diabetes mellitus with ketoacidosis without coma (principal); M41.9 Scoliosis, unspecified; J45.909 Unspecified asthma, uncomplicated; F41.9 Anxiety disorder, unspecified; Z79.899 Other long term (current) drug therapy; K21.9 Gastro-esophageal reflux disease without esophagitis; Z88.0 Allergy status to penicillin; F17.200 Nicotine dependence, unspecified, uncomplicated; Z91.19 Patient's noncompliance with other medical treatment and regimen

== ENCOUNTER → 2019-09-19 | Outpatient (REF) | payer OTHER ==
[~2019-09-19] MED LIST changes: +ADME100I SC; +GLUC1TES2 XX; +K-TA1TAB PO; +LANC30MI XX; +NICO4GUM31 PO; +PEN1MIS21 SC; +VENTAER INH
== END ==
LOC: M LAB REF 14:33
PROVIDERS: ATTEND Physician Assistant Medical
DX: J02.9 Acute pharyngitis, unspecified (principal)

== ENCOUNTER 2019-11-11 21:23 | Emergency (ER) | payer OTHER ==
[~2019-11-11] VITALS: Ht 170.2 cm; Wt 65.9 kg
[2019-11-11] MEDS ORDERED: BASA100I (21:35)
[2019-11-11 22:50] LABS: INFLUENZA A AMPLIFICATION NEGATIVE (NEGATIVE); INFLUENZA B AMPLIFICATION POSITIVE (NEGATIVE)
[2019-11-11] MEDS ORDERED: OSEL75CA PO (23:44)
[2019-11-11 23:54] VITALS: BP 122/72
== END 2019-11-11 23:55 | disposition home or self-care (01) ==
LOC: M ED 21:23
DX: J10.1 Influenza due to other identified influenza virus with other respiratory manifestations (principal); Z88.0 Allergy status to penicillin; J45.909 Unspecified asthma, uncomplicated; K21.9 Gastro-esophageal reflux disease without esophagitis; E11.9 Type 2 diabetes mellitus without complications; Z79.4 Long term (current) use of insulin; Z79.899 Other long term (current) drug therapy; F17.200 Nicotine dependence, unspecified, uncomplicated

== ENCOUNTER → 2019-12-23 | Outpatient (REF) | payer OTHER ==
[~2019-12-23] MED LIST changes: +BASA100I; +OSEL75CA PO
[2019-12-23 19:53] LABS: INFLUENZA A AMPLIFICATION NEGATIVE (NEGATIVE); INFLUENZA B AMPLIFICATION NEGATIVE (NEGATIVE)
== END ==
LOC: M LAB REF 18:50
PROVIDERS: ATTEND Physician Assistant Medical
DX: Z11.59 Encounter for screening for other viral diseases (principal); J11.1 Influenza due to unidentified influenza virus with other respiratory manifestations

== ENCOUNTER 2025-02-20 18:59 | Emergency (ER) | payer OTHER ==
[~2025-02-20] VITALS: Ht 175.3 cm; Wt 72.7 kg
[~2025-02-20 18:59] MED LIST changes: -ADV250INH INH; +ADVA1AER9 INH; -DICY20TA11 PO; +DICY20TA20 PO; +MONT-5 PO; +NICO-267 PO; -NICO4GUM31 PO; +PEN-308 SC; -PEN1MIS21 SC; -SING10TA32 PO
[2025-02-20 19:55] LABS: BASO % 0.2 % (0.0-1.0); EOS # 0.3 10^3/uL (0.0-0.5); EOS % 3.1 % (0.0-3.0); HEMATOCRIT 42.5 % (42.0-52.0); HEMOGLOBIN 14.2 g/dl (13.5-17.5); LYMPH # 0.9 10^3/uL (1.5-5.0); LYMPH % 8.6 % (24.0-44.0); MEAN CORPUSCULAR HEMOGLOBIN 28.8 pg (27.0-33.0); MEAN CORPUSCULAR HGB CONC 33.4 g/dl (32.0-36.5); MEAN CORPUSCULAR VOLUME 86.2 fl (80.0-96.0); MONO # 0.8 10^3/uL (0.0-0.8); MONO % 7.7 % (2.0-8.0); NEUTROPHILS # 8.5 10^3/uL (1.5-8.5); PLATELET COUNT, AUTOMATED 226 10^3/uL (150-450); RED BLOOD COUNT 4.93 10^6/uL (4.30-6.10); WHITE BLOOD COUNT 10.6 10^3/uL (4.0-10.0)
[2025-02-20 20:19] LABS: LIPASE 43 U/L (12-53)
[2025-02-20 20:21] LABS: ALBUMIN 3.5 G/DL (3.2-5.2); ALKALINE PHOSPHATASE 61 U/L (40-129); ALT/SGPT 29 U/L (7.0-40); AST/SGOT 25 U/L (<34); BILIRUBIN,DIRECT 0.2 MG/DL (<0.4); BILIRUBIN,TOTAL 0.5 MG/DL (0.3-1.2); BLOOD UREA NITROGEN 22 MG/DL (9-23); CALCIUM LEVEL 8.7 MG/DL (8.5-10.1); CARBON DIOXIDE LEVEL 27 MMOL/L (20-31); CHLORIDE LEVEL 101 MMOL/L (98-107); CREATININE FOR GFR 0.97 MG/DL (0.70-1.30); GLOMERULAR FILTRATION RATE > 90.0 (>60); GLUCOSE, FASTING 390 MG/DL (60-100); POTASSIUM SERUM 4.6 MMOL/L (3.5-5.1); SODIUM LEVEL 135 MMOL/L (136-145); TOTAL PROTEIN 6.4 G/DL (5.7-8.2)
[2025-02-20 21:45] LABS: KETONE, URINE AUTO RFX NEGATIVE (NEGATIVE); LEUKOCYTE ESTERASE UR AUTO RFX NEGATIVE (NEGATIVE); NITRITE, URINE AUTO RFX NEGATIVE (NEGATIVE); RBC, URINE AUTO RFX 24 /HPF (0-3); SQUAM EPITHELIAL CELL UR AURFX 0 /HPF (0-6); WBC, URINE AUTO RFX 7 /HPF (0-3)
[2025-02-20 22:00] VITALS: BP 141/93; TEMP 98.6; O2SAT 99
== END 2025-02-20 22:24 | disposition home or self-care (01) ==
LOC: M ED 18:59 → EDBD 18:59 → M ED 22:24
DX: E10.65 Type 1 diabetes mellitus with hyperglycemia (principal); Z88.0 Allergy status to penicillin

== ENCOUNTER 2025-05-22 07:16 | Emergency (ER) | payer OTHER ==
[~2025-05-22] VITALS: Ht 172.7 cm; Wt 79.9 kg
[2025-05-22 07:19] VITALS: TEMP 97.8
[2025-05-22] MEDS: ACETAMINOPHEN 500 MG TAB PO ONE (09:58)
[2025-05-22] MEDS: NS (Normal Saline) 0.9% 1,000 ML IV ONE (09:58)
[2025-05-22] MEDS: diphenhydrAMINE 50 MG/ML VIAL IV ONE (09:59)
[2025-05-22] MEDS: dexAMETHasone 4 MG/ML 1 ML VIAL IV ONE (10:50)
[2025-05-22] MEDS: MAG SULF 1GM/100ML (MAG RUN) 1 GM in IV 1 EA IV ONE (10:51)
[2025-05-22 12:00] VITALS: BP 133/69
[2025-05-22 12:16] VITALS: O2SAT 97
== END 2025-05-22 12:30 | disposition home or self-care (01) ==
LOC: M ED 07:16
DX: S06.0X0A Concussion without loss of consciousness, initial encounter (principal); S00.31XA Abrasion of nose, initial encounter; S00.83XA Contusion of other part of head, initial encounter; W20.8XXA Other cause of strike by thrown, projected or falling object, initial encounter; K58.9 Irritable bowel syndrome, unspecified; J45.909 Unspecified asthma, uncomplicated; F41.9 Anxiety disorder, unspecified; E10.9 Type 1 diabetes mellitus without complications; Z88.0 Allergy status to penicillin; Y92.9 Unspecified place or not applicable; Y93.89 Activity, other specified; Y99.0 Civilian activity done for income or pay; Z79.52 Long term (current) use of systemic steroids; Z79.899 Other long term (current) drug therapy
CPT/HCPCS: 70450; 70486; 72125; 96361; 96365; 96366; 96375; 99285; J1100; J1200; J2765; J3475

== ENCOUNTER → 2025-06-28 | Outpatient (CLI) | payer OTHER ==
[2025-06-28 12:28] LABS: APPEARANCE, URINE CLEAR (CLEAR); BACTERIA, URINE AUTO NEGATIVE (NEGATIVE); BILIRUBIN, URINE AUTO NEGATIVE (NEGATIVE); BLOOD, URINE BLOOD NEGATIVE (NEGATIVE); GLUCOSE, URINE (UA) AUTO 2+ mg/dL (NEGATIVE); KETONE, URINE AUTO NEGATIVE (NEGATIVE); LEUKOCYTE ESTERASE, URINE AUTO NEGATIVE (NEGATIVE); NITRITE, URINE AUTO NEGATIVE (NEGATIVE); PROTEIN, URINE AUTO 2+ mg/dL (NEGATIVE); RBC, URINE AUTO 1 /HPF (0-3); SPECIFIC GRAVITY URINE AUTO 1.016 (1.002-1.035); SQUAMOUS EPITHELIAL CELL UR AU 0 /HPF (0-6); UROBILINOGEN, URINE AUTO 0.2 mg/dL (0.0-2.0); WBC, URINE AUTO 1 /HPF (0-3)
== END ==
LOC: M WUC 09:21
PROVIDERS: ATTEND Nurse Practitioner Family
DX: R31.29 Other microscopic hematuria (principal)